=== PATIENT | male | born 1975 | race Caucasian/White ===

== ENCOUNTER 2021-11-08 21:36 | Emergency (ER) | payer MEDICAID ==
[~2021-11-08] VITALS: Ht 157.5 cm; Wt 79.5 kg
[2021-11-08 22:18] LABS: BASOPHILS # (AUTO) 0.1 X10'3 (0-0.2); BASOPHILS % (AUTO) 0.9 % (0-1); EOSINOPHILS # (AUTO) 0.4 X10'3 (0-0.9); EOSINOPHILS % (AUTO) 4.7 % (0-6); HEMATOCRIT 51.6 % (42.0-52.0); HEMOGLOBIN 17.1 g/dl (14.0-17.9); LYMPHOCYTES # (AUTO) 1.9 X10'3 (1.1-4.8); LYMPHOCYTES % (AUTO) 22.9 % (21-51); MEAN CORPUSCULAR HEMOGLOBIN 28.4 PG (27.0-31.0); MEAN CORPUSCULAR HGB CONC 33.2 g/dL (33.0-36.5); MEAN CORPUSCULAR VOLUME 85.4 FL (78-98); MONOCYTES % (AUTO) 12.7 % (2-12); NEUTROPHILS # (AUTO) 4.8 X10'3 (1.8-7.7); NEUTROPHILS % (AUTO) 58.8 % (42-75); PLATELET COUNT 229 X10'3 (140-440); RED BLOOD COUNT 6.04 X10'6 (4.70-6.10); RED CELL DISTRIBUTION WIDTH 15.5 % (11.5-14.5); WHITE BLOOD COUNT 8.2 X10'3 (4.5-11.0)
[2021-11-08 22:31] LABS: ALANINE AMINOTRANSFERASE 62 U/L (12-78); ALBUMIN 3.8 G/DL (3.4-5.0); ALKALINE PHOSPHATASE 68 IU/L (46-116); ANION GAP 7 (8-16); ASPARTATE AMINO TRANSFERASE 32 U/L (10-37); BILIRUBIN,TOTAL 0.3 MG/DL (0.1-1.0); BLOOD UREA NITROGEN 15 MG/DL (7-18); BUN/CREATININE RATIO 13.9 (5.4-32.0); CALCIUM 9.1 MG/DL (8.5-10.1); CHLORIDE 103 MMOL/L (99-107); CREATININE 1.08 MG/DL (0.60-1.10); GLUCOSE 97 MG/DL (70-104); SODIUM 140 MMOL/L (135-145); TOTAL CARBON DIOXIDE 29.6 MMOL/L (24-32); TOTAL PROTEIN 7.7 G/DL (6.4-8.2); eGFR 74 ML/MIN
--- NOTE | 2021-11-08 23:42 | NUR ---
Pt presents to the ed tx area with c/o cp, elevated bp; headaches, on intensity of 03/06; the pt states his bp was 160/150 at home; the pt states she has a hx of heart attack in 2009, and felt the need to come to the ed tonight for further evaluation. the pt is assisted to comfortable gown, placed on monitor; will ctm.
[2021-11-09 02:21] VITALS: BP 145/84
== END 2021-11-09 02:28 | disposition home or self-care (01) ==
LOC: ER 21:37
DX: I10 Essential (primary) hypertension (principal); R42 Dizziness and giddiness; R51.9 Headache, unspecified; R11.0 Nausea; I25.10 Atherosclerotic heart disease of native coronary artery without angina pectoris; F17.200 Nicotine dependence, unspecified, uncomplicated
CPT/HCPCS: 36415; 71045; 80053; 83880; 84484; 85025; 93005; 99285

== ENCOUNTER 2021-12-16 21:29 | Emergency (ER) | payer MEDICAID ==
[~2021-12-16] VITALS: Ht 157.5 cm; Wt 75.0 kg
[2021-12-16 23:20] VITALS: BP 128/76
== END 2021-12-16 23:21 | disposition home or self-care (01) ==
LOC: ER 21:30
DX: S80.12XA Contusion of left lower leg, initial encounter (principal); I25.10 Atherosclerotic heart disease of native coronary artery without angina pectoris; I25.2 Old myocardial infarction; Z85.3 Personal history of malignant neoplasm of breast; X58.XXXA Exposure to other specified factors, initial encounter; Y93.89 Activity, other specified; Y92.89 Other specified places as the place of occurrence of the external cause; Y99.8 Other external cause status
CPT/HCPCS: 99281

== ENCOUNTER 2021-12-27 00:47 | Emergency (ER) | payer MEDICAID ==
[~2021-12-27] VITALS: Ht 160 cm; Wt 72.7 kg
--- NOTE | 2021-12-27 02:35 | NUR ---
Pt sitting in bed, a&ox4, and on room air. Pt appears in no acute distress.
[2021-12-27] MEDS ORDERED: ibuprofen 200mg tablet PO ONE (02:55)
[2021-12-27] MEDS ORDERED: LIDOcaine Viscous 15ml cup TP ONE (02:55)
[2021-12-27] MEDS ORDERED: mag hydrox/Alum hydrox/simeth 30ml oral suspension PO ONE (02:55)
[2021-12-27 03:19] VITALS: BP 110/90
== END 2021-12-27 03:24 | disposition home or self-care (01) ==
LOC: ER 00:48
DX: J02.9 Acute pharyngitis, unspecified (principal); R05.9 Cough, unspecified; I25.10 Atherosclerotic heart disease of native coronary artery without angina pectoris; E78.00 Pure hypercholesterolemia, unspecified; I10 Essential (primary) hypertension; J44.9 Chronic obstructive pulmonary disease, unspecified; I25.2 Old myocardial infarction; Z85.841 Personal history of malignant neoplasm of brain; Z88.1 Allergy status to other antibiotic agents; Z88.8 Allergy status to other drugs, medicaments and biological substances
CPT/HCPCS: 87081; 87880; 99284

== ENCOUNTER 2022-01-05 04:02 | Emergency (ER) | payer MEDICAID ==
[~2022-01-05] VITALS: Ht 160 cm; Wt 77.3 kg
[2022-01-05] MEDS ORDERED: LIDOcaine Viscous 15ml cup MM ONE (05:00)
[2022-01-05] MEDS ORDERED: ibuprofen 100 MG/5 ML oral susp PO ONE (05:00)
[2022-01-05] MEDS ORDERED: diphenhydrAMINE 25 MG/10 ML UD oral solution PO ONE (05:00)
[2022-01-05] MEDS ORDERED: DIPH-518 PO (05:02)
[2022-01-05 05:33] VITALS: BP 119/85
== END 2022-01-05 05:34 | disposition home or self-care (01) ==
LOC: ER 04:02
DX: B34.9 Viral infection, unspecified (principal); I11.9 Hypertensive heart disease without heart failure; J44.9 Chronic obstructive pulmonary disease, unspecified; Z85.9 Personal history of malignant neoplasm, unspecified; E78.00 Pure hypercholesterolemia, unspecified
CPT/HCPCS: 99283; Q0163

== ENCOUNTER 2024-04-03 02:14 | Emergency (ER) | payer MEDICAID ==
[~2024-04-03] VITALS: Ht 157.5 cm; Wt 75.0 kg
[~2024-04-03 02:14] MED LIST: DIPH-518 PO
[2024-04-03 04:22] LABS: MEAN CORPUSCULAR HEMOGLOBIN 30.4 PG (27.0-31.0)
[2024-04-03 04:24] LABS: BASOPHILS # (AUTO) 0.1 X10'3 (0-0.2); BASOPHILS % (AUTO) 1.1 % (0-1); EOSINOPHILS # (AUTO) 0.6 X10'3 (0-0.9); EOSINOPHILS % (AUTO) 7.7 % (0-6); HEMATOCRIT 49.8 % (42.0-52.0); HEMOGLOBIN 16.9 g/dl (14.0-17.9); LYMPHOCYTES # (AUTO) 2.5 X10'3 (1.1-4.8); LYMPHOCYTES % (AUTO) 29.8 % (21-51); MEAN CORPUSCULAR VOLUME 89.3 FL (78-98); MONOCYTES # (AUTO) 0.9 X10'3 (0-0.9); MONOCYTES % (AUTO) 11.1 % (2-12); NEUTROPHILS # (AUTO) 4.2 X10'3 (1.8-7.7); NEUTROPHILS % (AUTO) 50.3 % (42-75); PLATELET COUNT 256 X10'3 (140-440); RED BLOOD COUNT 5.58 X10'6 (4.70-6.10); RED CELL DISTRIBUTION WIDTH 13.8 % (11.5-14.5); WHITE BLOOD COUNT 8.4 X10'3 (4.5-11.0)
[2024-04-03 04:29] VITALS: TEMP 98.6
[2024-04-03 04:30] LABS: ALANINE AMINOTRANSFERASE 126 U/L (12-78); ALBUMIN 4.2 G/DL (3.4-5.0); ALKALINE PHOSPHATASE 77 IU/L (46-116); ANION GAP 8 (8-16); ASPARTATE AMINO TRANSFERASE 69 U/L (10-37); BILIRUBIN,TOTAL 0.5 MG/DL (0.1-1.0); BLOOD UREA NITROGEN 17 MG/DL (7-18); BUN/CREATININE RATIO 14.5 (10.0-20.0); CALCIUM 9.4 MG/DL (8.5-10.1); CHLORIDE 100 MMOL/L (99-107); CREATININE 1.17 MG/DL (0.60-1.10); GLUCOSE 91 MG/DL (70-104); LIPASE 90 U/L (16-77); POTASSIUM 4.2 MMOL/L (3.5-5.1); SODIUM 136 MMOL/L (135-145); TOTAL CARBON DIOXIDE 27.7 MMOL/L (24-32); TOTAL PROTEIN 8.5 G/DL (6.4-8.2); eCRCL 61 ML/MIN; eGFR 67 ML/MIN
[2024-04-03 04:33] LABS: BILIRUBIN,URINE NEGATIVE (Neg); CLARITY,URINE CLEAR (Clear); COLOR,URINE YELLOW (Yellow); GLUCOSE, URINE NEGATIVE (Neg); KETONES,URINE NEGATIVE (Neg); LEUKOCYTE ESTERASE ,URINE NEGATIVE (Neg); NITRITES, URINE NEGATIVE (Neg); OCCULT BLOOD,URINE NEGATIVE (Neg); PH,URINE 5.5 (4.8-8.0); PROTEIN,URINE NEGATIVE (Neg); UROBILINOGEN,URINE 0.2 E.U/dL (0.2-1.0)
[2024-04-03 04:36] LABS: UA COLLECTION TYPE URINAL
[2024-04-03 05:12] VITALS: BP 106/74; PULSE 65; RESP 19; O2SAT 95
== END 2024-04-03 05:15 | disposition home or self-care (01) ==
LOC: ER 02:14
DX: R10.31 Right lower quadrant pain (principal); R11.0 Nausea; I25.10 Atherosclerotic heart disease of native coronary artery without angina pectoris; E78.00 Pure hypercholesterolemia, unspecified; I10 Essential (primary) hypertension; I25.2 Old myocardial infarction; J44.9 Chronic obstructive pulmonary disease, unspecified; Z85.841 Personal history of malignant neoplasm of brain; Z88.8 Allergy status to other drugs, medicaments and biological substances; Z79.899 Other long term (current) drug therapy
CPT/HCPCS: 36415; 74176; 80053; 81003; 83690; 85025; 99284

== ENCOUNTER → 2024-04-16 | Emergency (ER) | payer MEDICAID ==
[~2024-04-16] VITALS: Ht 157.5 cm; Wt 73.2 kg
[~2024-04-16] MED LIST changes: +GOLYS PO
[2024-04-16 12:52] VITALS: TEMP 97.9
[2024-04-16 13:55] VITALS: BP 120/84; PULSE 58; RESP 13; O2SAT 97
== END | disposition home or self-care (01) ==
LOC: ER 12:03
DX: K59.00 Constipation, unspecified (principal); I25.10 Atherosclerotic heart disease of native coronary artery without angina pectoris; E78.00 Pure hypercholesterolemia, unspecified; I10 Essential (primary) hypertension; I25.2 Old myocardial infarction; J44.9 Chronic obstructive pulmonary disease, unspecified; Z88.8 Allergy status to other drugs, medicaments and biological substances
CPT/HCPCS: 99283

== ENCOUNTER 2025-01-09 13:36 | Emergency (ER) | payer MEDICAID ==
[~2025-01-09] VITALS: Ht 157.5 cm; Wt 56.8 kg
[2025-01-09 13:44] VITALS: TEMP 97.8
--- NOTE | 2025-01-09 14:01 | ELECTROCARDIOGRAPH REPORT ---
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
[2025-01-09 14:10] LABS: BASOPHILS # (AUTO) 0.1 X10'3 (0-0.2); BASOPHILS % (AUTO) 1.8 % (0-1); EOSINOPHILS # (AUTO) 0.3 X10'3 (0-0.9); EOSINOPHILS % (AUTO) 6.9 % (0-6); HEMATOCRIT 47.7 % (42.0-52.0); HEMOGLOBIN 15.6 g/dl (14.0-17.9); LYMPHOCYTES # (AUTO) 1.2 X10'3 (1.1-4.8); LYMPHOCYTES % (AUTO) 26.5 % (21-51); MEAN CORPUSCULAR HEMOGLOBIN 29.6 PG (27.0-31.0); MEAN CORPUSCULAR HGB CONC 32.7 g/dL (33.0-36.5); MEAN CORPUSCULAR VOLUME 90.5 FL (78-98); MONOCYTES # (AUTO) 0.3 X10'3 (0-0.9); MONOCYTES % (AUTO) 6.8 % (2-12); NEUTROPHILS # (AUTO) 2.6 X10'3 (1.8-7.7); PLATELET COUNT 252 X10'3 (140-440); RED BLOOD COUNT 5.27 X10'6 (4.70-6.10); RED CELL DISTRIBUTION WIDTH 13.6 % (11.5-14.5); WHITE BLOOD COUNT 4.5 X10'3 (4.5-11.0)
[2025-01-09 14:26] LABS: ALANINE AMINOTRANSFERASE 27 U/L (12-78); ALBUMIN 4.4 G/DL (3.4-5.0); ALBUMIN/GLOBULIN RATIO 1.3 (1.1-1.5); ALKALINE PHOSPHATASE 74 IU/L (46-116); ANION GAP 7 (8-16); ASPARTATE AMINO TRANSFERASE 21 U/L (10-37); BILIRUBIN,TOTAL 0.5 MG/DL (0.1-1.0); BLOOD UREA NITROGEN 17 MG/DL (7-18); BUN/CREATININE RATIO 16.5 (10.0-20.0); CALCIUM 9.2 MG/DL (8.5-10.1); CHLORIDE 103 MMOL/L (99-107); CREATININE 1.03 MG/DL (0.60-1.10); GLUCOSE 105 MG/DL (70-104); SODIUM 140 MMOL/L (135-145); TOTAL CARBON DIOXIDE 30.3 MMOL/L (24-32); TOTAL PROTEIN 7.7 G/DL (6.4-8.2); eCRCL 68 ML/MIN; eGFR 77 ML/MIN
[2025-01-09 14:33] LABS: PRO BRAIN NATRIURETIC PEPTIDE 140 PG/ML (0-125)
--- NOTE | 2025-01-09 15:16 | RADIOLOGY REPORT ---
CHEST RADIOGRAPH Indication: CP Technique: Single frontal view of the chest was obtained Comparison: CHEST,SINGLE VIEW on DOS: 11/08/21 FINDINGS: Lines and Tubes: None Lungs: No focal consolidation. Pleura: No effusion. No pneumothorax. Cardiomediastinal contours: Unremarkable Bones: No acute osseous abnormality. IMPRESSION: 1. No acute cardiopulmonary disease.
--- NOTE | 2025-01-09 17:24 | Physician Documentation ---
History of Present Illness ~ Chief Complaint: Chest Pain Stated Complaint: BLOOD CLOTS IN HEART Time Seen by MD: 17:01 Primary Medical Doctor: [facility] Source: patient Mode of Arrival: Ambulatory HPI 48-year-old male in ER with concerns due to blood clot in the heart patient recently had an echo and stress test ordered by his optical manufacturing technician in [facility] with ejection fraction of 60% but mass seen in the left ventricle. Patient was ultimately placed on Eliquis 5 mg twice a day to complement his Plavix. Patient states he has history of having a heart attack in 2009 when he started Plavix. Patient states that he was also bleeding uncontrollably from his nose and his mouth subjectively since starting Eliquis. Patient has been on Eliquis for 2 days. Patient does have a primary care provider at [facility] he has not seen in several months. His optical manufacturing technician is Dr. Riggs. Patient denies any chest pain or shortness of breath. Patient's main concern is this left ventricle mass or blood clot that he is now taking Eliquis for. Day of Onset: January 09, 2025 Associated Symptoms: Denies: denies symptoms, chest pain, diaphoresis, nausea/vomiting, shortness of breath, cough, calf pain or swelling, fever/chills, headaches, loss of appetite, malaise, palpitations, rash, seizure, syncope, weakness, other Medication Reconciliation Allergies: Coded Allergies: sulfamethoxazole (Verified Allergy, Severe, increases heart rate, 04/16/24) trimethoprim (Verified Allergy, Severe, increases heart rate, 04/16/24) Scheduled Peg 3350/Na Sulf,Bicarb,Cl/KCl (Golytely Solution), 0 PO UD Scheduled PRN Diphenhydramine HCl (Benadryl Allergy), 15 ML PO Q6H PRN PRN for allergy symptoms Past Medical History Past Medical History: Coronary Artery Disease, High Cholesterol, Hypertension, Myocardial Infarction, COPD, Brain Cancer Past Surgical History: no surgical history Alcohol Use: None Drug Use: none Lives In: Home Review of Systems All Other Systems at this time: Reviewed and Negative Cardiovascular: Reports: see HPI Physical Exam Vital Signs: RN Vital Signs have been reviewed: Yes, Temperature: 97.8, Source: Oral, Heart Rate: 57, Respiratory Rate: 16, BP: 123/83, Pulse Oximetry: 98, Weight: 56.820 Oxygen Flow Rate: 0 General Appearance: alert, no apparent distress Respiratory: lungs clear, normal breath sounds, no respiratory distress Chest: no accessory muscle use Cardiovascular: normal peripheral pulses, regular rate, rhythm, no edema Skin: normal color, warm/dry Progress Results/Orders Results/Orders Vital Signs 01/09/25 01/09/25 01/09/25 13:44 16:55 17:52 Temp 97.8 Pulse 82 57 80 Resp 17 16 18 B/P (MAP) 120/82 123/83 (96) 116/64 Pulse Ox 98 98 98 O2 Flow Rate 0 0 Laboratory Tests Test 01/09/25 13:58 01/09/25 15:43 White Blood Count 4.5 Red Blood Count 5.27 Hemoglobin 15.6 Hematocrit 47.7 Mean Corpuscular Volume 90.5 Mean Corpuscular Hemoglobin 29.6 Mean Corpuscular Hemoglobin Concent 32.7 L Red Cell Distribution Width 13.6 Platelet Count 252 Mean Platelet Volume 9.0 Neutrophils (%) (Auto) 58.0 Lymphocytes (%) (Auto) 26.5 Monocytes (%) (Auto) 6.8 Eosinophils (%) (Auto) 6.9 H Basophils (%) (Auto) 1.8 H Neutrophils # (Auto) 2.6 Lymphocytes # (Auto) 1.2 Monocytes # (Auto) 0.3 Eosinophils # (Auto) 0.3 Basophils # (Auto) 0.1 CBC Comment Sodium Level 140 Potassium Level 4.0 Chloride Level 103 Carbon Dioxide Level 30.3 Anion Gap 7 L Blood Urea Nitrogen 17 Creatinine 1.03 Estimated GFR/1.73 m2 77 BUN/Creatinine Ratio 16.5 Glucose Level 105 H Calcium Level 9.2 Total Bilirubin 0.5 Aspartate Amino Transf (AST/SGOT) 21 Alanine Aminotransferase (ALT/SGPT) 27 Alkaline Phosphatase 74 Troponin I High Sensitivity 7 7 Pro-B-Type Natriuretic Peptide 140 H Total Protein 7.7 Albumin 4.4 Globulin 3.3 Albumin/Globulin Ratio 1.3 Chemistry Comments Troponin I High Sens Percent Delta 0 Troponin I Hi Sens Absolute Change 0 EKG/XRAY/CT/US/VASC/MRI EKG : Indication: chest pain, other Additional Comment EKG: Sinus rhythm at 76 beats per minute normal axis no acute ST abnormalities Chest X-Ray : Interpreted By: radiologist Views: 1 VIEW Impression: no acute disease Additional Comments CHEST RADIOGRAPH Indication: CP Technique: Single frontal view of the chest was obtained Comparison: CHEST,SINGLE VIEW on DOS: 11/08/21 FINDINGS: Lines and Tubes: None Lungs: No focal consolidation. Pleura: No effusion. No pneumothorax. Cardiomediastinal contours: Unremarkable Bones: No acute osseous abnormality. IMPRESSION: 1. No acute cardiopulmonary disease. Heart Score: Heart Score Response (Comments) Value History Slightly Suspicious 0 EKG Normal 0 Age 45-64 1 Risk Factors 1 or 2 risk factors 1 Troponin Normal limit 0 Total 2 Medical Decision Making Additional info obtained from: old records Differential Dx:Considerations: Unlikely: angina, aortic dissection, chest wall pain, cholelithiasis, CHF, costochondritis, esophageal reflux/spasm, gastritis, herpes zoster, myocardial infarction, pericarditis, pleuritis, pancreatitis, pneumonia, pneumothorax, pulmonary embolus, other Additional Information Patient has reoccurred follow-up optical manufacturing technician. Patient concerned for clot/mass that is currently being treated by optical manufacturing technician Dr. Riggs. He had an echo and stress test 2 weeks ago and placed on Eliquis. Patient is denying any current chest pain or shortness of breath. Reassurance and education provided on medications follow-up with primary care and optical manufacturing technician. Departure Time of Disposition: 17:18 Disposition: HOME / SELF CARE / HOMELESS Impression: Primary Impression: Chest pain Additional Impression: Hx of custodial use of blood thinners Condition: Stable Discharge Instructions: Heart Disease Medication Safety Referrals: NO PRIMARY CARE PROVIDER (PCP) Education Educated: Patient Educated regarding: diagnosis, treatment, need for follow up Additional Comment As discussed during our encounter I advised following up with primary care as well as potentially getting a optical manufacturing technician closer in the area to have more frequent follow-up. Follow optical manufacturing technician recommendations for Eliquis and Plavix. Maintain follow-up in 6 months or sooner with new optical manufacturing technician. For any new or worsening symptoms including chest pain or shortness of breadth cell free to return to the ER. Signature Scribe Signature: No scribe Attestation: The note accurately reflects work and decisions made by me.Dianne BORRERO 01/09/25 18:07 DIANNE LYN NP January 09, 2025 17:24
[2025-01-09 17:52] VITALS: BP 116/64; PULSE 80; RESP 18; O2SAT 98
== END 2025-01-09 17:52 | disposition home or self-care (01) ==
LOC: ER 13:37
DX: R07.89 Other chest pain (principal); I10 Essential (primary) hypertension; E78.00 Pure hypercholesterolemia, unspecified; I25.10 Atherosclerotic heart disease of native coronary artery without angina pectoris; J44.9 Chronic obstructive pulmonary disease, unspecified; I25.2 Old myocardial infarction; I16.1 Hypertensive emergency; Z79.01 Long term (current) use of anticoagulants; Z88.2 Allergy status to sulfonamides; Z79.899 Other long term (current) drug therapy
CPT/HCPCS: 36415; 71045; 80053; 83880; 84484; 85025; 93005; 99285

== ENCOUNTER 2025-01-30 08:07 | Emergency (ER) | payer MEDICAID ==
[~2025-01-30] VITALS: Ht 157.5 cm; Wt 58.2 kg
--- NOTE | 2025-01-30 08:26 | ELECTROCARDIOGRAPH REPORT ---
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 Rhys Adler Measurements Intervals [place] Rate: 66 P: 86 VA: 206 QRS: 87 QRSD: 87 T: 97 QT: 388 QTc: 407 Interpretive Statements Sinus rhythm Borderline prolonged VA interval Nonspecific T abnrm, anterolateral leads Electronically Signed On 01-30-2025 11:14:[address] Rhys Adler Please click the below link to view image of tracing.
[2025-01-30 08:27] LABS: BASOPHILS # (AUTO) 0.1 X10'3 (0-0.2); BASOPHILS % (AUTO) 0.9 % (0-1); EOSINOPHILS # (AUTO) 0.4 X10'3 (0-0.9); HEMATOCRIT 41.8 % (42.0-52.0); HEMOGLOBIN 13.8 g/dl (14.0-17.9); LYMPHOCYTES # (AUTO) 1.8 X10'3 (1.1-4.8); LYMPHOCYTES % (AUTO) 19.9 % (21-51); MEAN CORPUSCULAR HEMOGLOBIN 29.9 PG (27.0-31.0); MEAN CORPUSCULAR VOLUME 90.5 FL (78-98); MEAN PLATELET VOLUME 9.1 FL (7.4-10.4); MONOCYTES # (AUTO) 0.9 X10'3 (0-0.9); MONOCYTES % (AUTO) 10.5 % (2-12); NEUTROPHILS # (AUTO) 5.7 X10'3 (1.8-7.7); NEUTROPHILS % (AUTO) 63.7 % (42-75); PLATELET COUNT 194 X10'3 (140-440); RED BLOOD COUNT 4.62 X10'6 (4.70-6.10); RED CELL DISTRIBUTION WIDTH 13.6 % (11.5-14.5); WHITE BLOOD COUNT 8.9 X10'3 (4.5-11.0)
[2025-01-30 08:54] LABS: ALBUMIN 3.8 G/DL (3.4-5.0); ANION GAP 7 (8-16); BLOOD UREA NITROGEN 19 MG/DL (7-18); CALCIUM 8.7 MG/DL (8.5-10.1); CHLORIDE 103 MMOL/L (99-107); GLUCOSE 108 MG/DL (70-104); POTASSIUM 3.8 MMOL/L (3.5-5.1); PRO BRAIN NATRIURETIC PEPTIDE 199 PG/ML (0-125); SODIUM 141 MMOL/L (135-145); TOTAL CARBON DIOXIDE 30.8 MMOL/L (24-32); eCRCL 71 ML/MIN; eGFR 80 ML/MIN
--- NOTE | 2025-01-30 09:33 | Physician Documentation ---
History of Present Illness ~ Chief Complaint: Neck pain Stated Complaint: PAIN/SWELLING/NUMBNESS IN NECK/JAW X2 DAYS Time Seen by MD: 09:32 OK to notify your PCP?: Yes Primary Medical Doctor: [facility] Source: patient, RN/, RN notes reviewed, other Mode of Arrival: POV Exam Limitations: no limitations, other HPI 49 year old male with three blood clots in his heart seen in bed o4 presents to the emergency department for complaints of neck pain that began two days ago. He states that the pain is in the left side of his neck and it radiates down to his shoulder. He states the pain began as numbness two days ago and turned into pain that worsens with movements. Patient states that he has been taking [place] for his pain. Of note patient states that he is on palliative care due to needing a heart transplant as he has an ejection fraction of 18-20% per patient as there was no echocardiography done at this facility . He was sent in today by his palliative care nurse. He states that when he was younger he used steroids and ate three pounds of red meat a day which he attributes his heart issues. He denies any smoking or drug use. Patient denies any other associated symptoms at this time. Patient denies any other alleviating or exacerbating factors. Medication Reconciliation Allergies: Coded Allergies: sulfamethoxazole (Verified Allergy, Severe, increases heart rate, 04/16/24) trimethoprim (Verified Allergy, Severe, increases heart rate, 04/16/24) Scheduled Peg 3350/Na Sulf,Bicarb,Cl/KCl (Golytely Solution), 0 PO UD Scheduled PRN Diphenhydramine HCl (Benadryl Allergy), 15 ML PO Q6H PRN PRN for allergy symptoms Tramadol HCl (Tramadol HCl), 1 TAB PO Q12H PRN PRN for pain Past Medical History Past Medical History: Coronary Artery Disease, High Cholesterol, Hypertension, Myocardial Infarction, COPD, Brain Cancer Past Surgical History: no surgical history Alcohol Use: None Drug Use: none Lives In: Home Review of Systems All Other Systems at this time: Reviewed and Negative ROS As stated above in the HPI, otherwise all systems are reviewed and negative. Physical Exam Vital Signs: RN Vital Signs have been reviewed: Yes, Temperature: 98.4, Source: Oral, Heart Rate: 59, Respiratory Rate: 20, BP: 100/70, Pulse Oximetry: 97, Weight: 58.200 Oxygen Flow Rate: 0 Pulse Oximetry Reflects: adequate oxygenation Physical Exam General: The patient is well developed, well nourished, nontoxic appearing and is in no acute distress. Skin: [place], warm and dry with no rashes. HEENT: Head was normocephalic and atraumatic. Eyes - pupils equal, round, reactive to light and accommodation. Extraocular movements were intact. Conjunctivae were nonicteric. Ears - bilateral tympanic membranes were normal. The mouth and oropharynx were clear with moist mucous membranes. There were no pharyngeal exudates or erythema. Neck: Mild midline tenderness. Patient has some spinal tenderness as well in tenderness in both his posterior and anterior neck. There was no jugular venous distention, lymphadenopathy, thyromegaly or masses. Chest: Clear to auscultation bilaterally without wheezes, rales or rhonchi. No accessory muscle use. No dullness to percussion. Heart: Rate regular and rhythmic. S1, S2. No murmurs. Palpation of the chest wall was normal. No rubs or thrills. Abdomen: Soft, nontender and nondistended. Positive bowel sounds. No guarding or rebound. No hepatosplenomegaly or palpable masses. Extremities: No cyanosis, clubbing or edema. The patient moves all extremities. Pulses were equal and symmetric. Neurologic: Cranial nerves II-XII were intact. Sensation was intact to light touch throughout. Motor strength was 5/5 in all four extremities. Deep tendon reflexes were intact in both upper and lower extremities. Psychologic: The patient was oriented to person, place and time. The patient demonstrated appropriate judgement and insight. Progress Results/Orders Reviewed/noted all lab results: Yes Results/Orders Orders - NASIR RAMIREZ MD Chest,Single View (01/30/25 08:14) Monitor (01/30/25 08:14) Saline Lock (01/30/25 08:14) Oxygen (01/30/25 08:14) Electrocardiogram (01/30/25 08:14) Hs Troponin I W Calculations (01/30/25 11:14) Cta Chest Aorta (01/30/25 14:03) Ct Cervical Spine (01/30/25 14:01) Pre Op Uacii (01/30/25 16:09) Completed Orders - NASIR RAMIREZ MD Chest,Single View (01/30/25 08:14) Cbc/Diff (01/30/25 08:14) BMP (01/30/25 08:14) PBNP (01/30/25 08:14) Electrocardiogram (01/30/25 08:14) Hs Troponin I W Calculations (01/30/25 08:14) Hs Troponin I W Calculations (01/30/25 10:14) Drug Screen, Urine (01/30/25 12:58) Ethanol (01/30/25 10:01) Liver Panel (01/30/25 10:01) PBNP (01/30/25 10:01) Cta Chest Aorta (01/30/25 14:03) Ct Cervical Spine (01/30/25 14:01) Iohexol 350mg/Ml 100ml (Omnipaque 350mg/ (01/30/25 13:52) Vital Signs 01/30/25 01/30/25 01/30/25 01/30/25 08:11 08:41 09:12 09:55 Temp 98.4 98.4 98.4 Pulse 65 59 63 Resp 16 18 20 19 B/P (MAP) 117/83 100/70 (80) 101/68 (79) Pulse Ox 97 97 98 O2 Flow Rate 0 0 0 01/30/25 01/30/25 01/30/25 01/30/25 11:03 15:59 16:00 17:10 Temp 98.4 Pulse 60 59 61 Resp 20 14 21 B/P (MAP) 100/71 (81) 108/76 (87) 110/80 Pulse Ox 98 94 98 O2 Flow Rate 0 0 01/30/25 17:12 Pulse 61 Resp 15 B/P (MAP) 110/80 (90) Pulse Ox 98 Laboratory Tests Test 01/30/25 08:20 01/30/25 10:01 01/30/25 15:47 White Blood Count 8.9 Red Blood Count 4.62 L Hemoglobin 13.8 L Hematocrit 41.8 L Mean Corpuscular Volume 90.5 Mean Corpuscular Hemoglobin 29.9 Mean Corpuscular Hemoglobin Concent 33.0 Red Cell Distribution Width 13.6 Platelet Count 194 Mean Platelet Volume 9.1 Neutrophils (%) (Auto) 63.7 Lymphocytes (%) (Auto) 19.9 L Monocytes (%) (Auto) 10.5 Eosinophils (%) (Auto) 5.0 Basophils (%) (Auto) 0.9 Neutrophils # (Auto) 5.7 Lymphocytes # (Auto) 1.8 Monocytes # (Auto) 0.9 Eosinophils # (Auto) 0.4 Basophils # (Auto) 0.1 CBC Comment Sodium Level 141 Potassium Level 3.8 Chloride Level 103 Carbon Dioxide Level 30.8 Anion Gap 7 L Blood Urea Nitrogen 19 H Creatinine 1.00 Estimated GFR/1.73 m2 80 BUN/Creatinine Ratio 19.0 Glucose Level 108 H Calcium Level 8.7 Troponin I High Sensitivity 7 7 Pro-B-Type Natriuretic Peptide 199 H 185 H Albumin 3.8 3.6 Chemistry Comments Total Bilirubin 0.3 Direct Bilirubin 0.1 Aspartate Amino Transf (AST/SGOT) 20 Alanine Aminotransferase (ALT/SGPT) 20 Alkaline Phosphatase 71 Troponin I High Sens Percent Delta 0 Troponin I Hi Sens Absolute Change 0 Total Protein 6.8 Globulin 3.2 Albumin/Globulin Ratio 1.1 Ethyl Alcohol Level < 10 Urine Comment Urine Opiates Screen Positive Urine Methadone Screen Negative Urine Fentanyl Screen Negative Urine Barbiturates Screen Negative Urine Phencyclidine Screen Negative Urine Amphetamines Screen Negative Urine Benzodiazepines Screen Negative Urine Cocaine Screen Negative Urine Cannabinoids Screen Positive Drug Screen Comment Re-Evaluation Re-Evaluation : Re-Evaluation: Improved Progress Patient was seen and examined. Patient was given reassurance. Patient is complaining of some neck pain history of clots. Distal pulses were patent and reassuring for concern for possible DVT of the upper extremity which is unlikely or subclavian arteries. Patient laboratory work was also reassuring. White cou nt was 8.9 borderline anemia of 13 and 41 hemoglobin hematocrit. Chemistry is within normal limits proBNP within normal limits troponin x2 he is also within normal limits tox screen negative alcohol negative urinalysis was canceled for small specimen. CT scan was negative for pulmonary embolism CT C-spine showed some degenerative neck disease. Infection is unlikely, vascular disease unlikely. Musculoskeletal appears to be the major complaint for the patient including neck pain from degenerative disease however the muscle spasms mostly to one muscle group and the patient was diagnosed with torticollis. Continuous tip puncher interpretation shows normal sinus rhythm heart rate 60s, no ectopy, normal, my interpretation. Pulse oximetry monitor interpretation shows normal oxygenation 97% room air, normal, my interpretation. 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 Nasir Ramirez Measurements Intervals [place] Rate: 66 P: 86 WI: 206 QRS: 87 QRSD: 87 T: 97 QT: 388 QTc: 407 Interpretive Statements Sinus rhythm Borderline prolonged [place] interval Nonspecific T abnrm, anterolateral leads Electronically Signed On 01-30-2025 11:14:[address] Nasir Ramirez Please click the below link to view image of tracing. EKG Date and Time:01/30/25821 Electronically Signed by: NASIR RAMIREZ MD Date and Time: 01/30/[address] #1: Impression History: pain Comparison: None TECHNIQUE: Volumetric data acquisition of chest was obtained following intravenous administration of 100 ml omni 350 contrast without any reported adverse effects. Arterial phase imaging was performed. Axial images were obtained and additional sagittal and coronal images were reformatted. 3D/MIP images were performed and reviewed for reporting. Radiation dose Information: CT Dose: CTDI volume is 20 mGy. Dose-length product is 704 mGy*cm Findings: Vascular: Aortic measurements: Sinus of valsalva 35 mm, ST junction 25 mm, ascending aorta 31 mm, descending aorta 21 mm, aortic hiatus 20 mm. There is normal caliber of thoracic aorta without evidence of aortic dissection, intramural hematoma or aneurysm. A ductus bump is noted. Visualized supra-aortic arteries are patent without a focal stenosis or aneurysm. Chest: Pulmonary Arteries: There are no filling defects within main pulmonary arteries. There is normal dimensional of main PA. Lungs: There is no peripheral pulmonary infarction, consolidation, pleural effusion, or right heart strain. There is no pneumothorax or pneumomediastinum. Mild atelectasis and scarring in the lung bases. Lymph Nodes: There is no significant intrathoracic or axillary lymphadenopathy on CT size criteria. Lower Neck: Visualized portions of the thyroid gland are unremarkable. Mediastinum: Heart size is normal. There is no pericardial effusion. Musculoskeletal: No aggressive focal bony lesions, acute fractures or dislocation. Upper Abdomen: Unremarkable IMPRESSION: 1. No evidence of aortic aneurysm, dissection, or intramural hematoma. No pulmonary embolus. No suspicious nodule or consolidation. 2. All CT scans at this medical facility are performed using dose modulation techniques as appropriate to a performed exam including the following: Automated exposure control was utilized; Adjustment of the MA And/or KV according to patient size; And use of iterative reconstruction technique. HS:Y Electronically Signed by:PATRICE FRYE MD Date & Time: 01/30/[address] #2: Impression Indication: left neck pain Technique: CT axial images of the cervical spine are obtained without contrast. Coronal and sagittal reformats were obtained. Radiation Dose Information: CTDI volume is 19 mGy. Dose-length product is 444 mGy*cm Comparison: None FINDINGS: The cervical vertebral body heights are maintained. Straightening of normal cervical spine curvature. There is moderate multilevel disc space narrowing. No prevertebral edema. Facet articulations are in tact. . The atlantooccipital, atlantoaxial articulations are intact. IMPRESSION: 1. Moderate cervical degenerative disc disease. Electronically Signed by:ALBINO BUENROSTRO MD Date & Time: 01/30/25 1429 Medical Decision Making Additional info obtained from: old records Differential Dx:Considerations: Include: Cervical muscle spasm, Discitis, DJD, Meningitis, Torticollis, Vertebral artery dissect., Other Departure Time of Disposition: 16:40 Disposition: 01 HOME / SELF CARE / HOMELESS Impression: Primary Impression: DJD (degenerative joint disease) Qualified Codes: M47.22 - Other spondylosis with radiculopathy, cervical region Additional Impression: Torticollis Condition: Stable Discharge Instructions: Acute Torticollis, Adult Referrals: NO PRIMARY CARE PROVIDER (PCP) Prescriptions Tramadol HCl (Tramadol HCl) 50 Mg Tablet 1 TAB PO Q12H PRN PRN for pain for 10 Days, #20 TAB Prov: NASIR RAMIREZ MD 01/30/25 Education Educated: Patient Educated regarding: diagnosis, treatment, prognosis, need for follow up Signature Scribe Signature: Scribed for Nasir Ramirez MD by Ruslan Ramirez . 01/30/25 11:59 (progress) Attestation: The note accurately reflects work and decisions made by me.Nasir Ramirez MD 01/30/25 09:33 NASIR RAMIREZ MD Jan 30, 2025 09:33 RUSLAN MCCLURE Jan 30, 2025 11:59
[2025-01-30 11:03] VITALS: TEMP 98.4
[2025-01-30 13:47] LABS: ALANINE AMINOTRANSFERASE 20 U/L (12-78); ALBUMIN 3.6 G/DL (3.4-5.0); ALBUMIN/GLOBULIN RATIO 1.1 (1.1-1.5); ALKALINE PHOSPHATASE 71 IU/L (46-116); ASPARTATE AMINO TRANSFERASE 20 U/L (10-37); BILIRUBIN,DIRECT 0.1 MG/DL (0-0.3); BILIRUBIN,TOTAL 0.3 MG/DL (0.1-1.0); TOTAL PROTEIN 6.8 G/DL (6.4-8.2)
[2025-01-30] MEDS ORDERED: iohexol 350MG/ML 100ml bottle IV ONE (13:52)
[2025-01-30 13:54] LABS: ETHANOL < 10 MG/DL (<10)
[2025-01-30 14:12] LABS: PRO BRAIN NATRIURETIC PEPTIDE 185 PG/ML (0-125)
--- NOTE | 2025-01-30 14:31 | RADIOLOGY REPORT ---
Indication: left neck pain Technique: CT axial images of the cervical spine are obtained without contrast. Coronal and sagittal reformats were obtained. Radiation Dose Information: CTDI volume is 19 mGy. Dose-length product is 444 mGy*cm Comparison: None FINDINGS: The cervical vertebral body heights are maintained. Straightening of normal cervical spine curvature . There is moderate multilevel disc space narrowing. No prevertebral edema. Facet articulations are i n tact. . The atlantooccipital, atlantoaxial articulations are intact. IMPRESSION: 1. Moderate cervical degenerative disc disease.
--- NOTE | 2025-01-30 14:52 | RADIOLOGY REPORT ---
History: pain Comparison: None TECHNIQUE: Volumetric data acquisition of chest was obtained following intravenous administration of 100 ml omni 350 contrast without any reported adverse effects. Arterial phase imaging was performed. Axial images were obtained and additional sagittal and coronal images were reformatted. 3D/MIP images were performed and reviewed for reporting. Radiation dose Information: CT Dose: CTDI volume is 20 mGy. Dose-length product is 704 mGy*cm Findings: Vascular: Aortic measurements: Sinus of valsalva 35 mm, ST junction 25 mm, ascending aorta 31 mm, d escending aorta 21 mm, aortic hiatus 20 mm. There is normal caliber of thoracic aorta without evidence of aortic dissection, intramural hematoma or aneurysm. A ductus bump is noted. Visualized supra-aortic arteries are patent without a focal sten osis or aneurysm. Chest: Pulmonary Arteries: There are no filling defects within main pulmonary arteries. There is norm al dimensional of main PA. Lungs: There is no peripheral pulmonary infarction, consolidation, pleural effusion, or right heart s train. There is no pneumothorax or pneumomediastinum. Mild atelectasis and scarring in the lung bases . Lymph Nodes: There is no significant intrathoracic or axillary lymphadenopathy on CT size criteria. Lower Neck: Visualized portions of the thyroid gland are unremarkable. Mediastinum: Heart size is normal. There is no pericardial effusion. Musculoskeletal: No aggressive focal bony lesions, acute fractures or dislocation. Upper Abdomen: Unremarkable IMPRESSION: 1. No evidence of aortic aneurysm, dissection, or intramural hematoma. No pulmonary embolus. No suspi cious nodule or consolidation. 2. All CT scans at this medical facility are performed using dose modulation techniques as appropriat e to a performed exam including the following: Automated exposure control was utilized; Adjustment of the MA And/or KV according to patient size; And use of iterative reconstruction technique. HS:Y
[2025-01-30 16:35] LABS: URINE AMPHETAMINE SCREEN NEGATIVE (Neg); URINE BARBITUATE SCREEN NEGATIVE (Neg); URINE BENZODIAZEPINES SCREEN NEGATIVE (Neg); URINE CANNABINOID SCREEN POSITIVE (Neg); URINE COCAINE SCREEN NEGATIVE (Neg); URINE METHADONE SCREEN NEGATIVE (Neg); URINE OPIATE SCREEN POSITIVE (Neg); URINE PHENCYCLIDINE SCREEN NEGATIVE (Neg)
[2025-01-30] MEDS ORDERED: TRAM50TA2 PO (16:41)
[2025-01-30 17:12] VITALS: BP 110/80; PULSE 61; RESP 15; O2SAT 98
--- NOTE | 2025-01-31 11:01 | RADIOLOGY REPORT ---
CHEST RADIOGRAPH Indication: CP Technique: Single frontal view of the chest was obtained Comparison: DI CHEST,SINGLE VIEW on DOS: 01/09/25 FINDINGS: Lines and Tubes: None Lungs: No focal consolidation. Pleura: No effusion. No pneumothorax. Cardiomediastinal contours: Unremarkable Bones: No acute osseous abnormality. Age-indeterminate but probably chronic appearing 9th left rib f racture. IMPRESSION: 1. No acute cardiopulmonary disease.
== END 2025-01-30 17:13 | disposition home or self-care (01) ==
LOC: ER 08:07
DX: M19.90 Unspecified osteoarthritis, unspecified site (principal); M43.6 Torticollis; E78.00 Pure hypercholesterolemia, unspecified; I10 Essential (primary) hypertension; I25.10 Atherosclerotic heart disease of native coronary artery without angina pectoris; I25.2 Old myocardial infarction; J44.9 Chronic obstructive pulmonary disease, unspecified; Z88.2 Allergy status to sulfonamides; Z79.899 Other long term (current) drug therapy
CPT/HCPCS: 36415; 71045; 71275; 72125; 80048; 80076; 80305; 80320; 83880; 84484; 85025; 93005; 99285; Q9967

== ENCOUNTER 2025-07-10 11:07 | Emergency (ER) | payer MEDICAID ==
[~2025-07-10] VITALS: Ht 157.5 cm; Wt 53.4 kg
[2025-07-10 11:16] VITALS: RESP 16; TEMP 98.1
--- NOTE | 2025-07-10 11:56 | Physician Documentation ---
History of Present Illness ~ General Chief Complaint: See Chief Complaint Stated Complaint: POST OP COMPLICATIONS Time Seen by MD: 11:27 Primary Medical Doctor: [facility] Mode of Arrival: Ambulatory History of Present Illness Initial Comments 49-year-old male with past medical history of CAD status post cardiac stenting to LAD, IBS, chronic constipation, SBO presents to the ED with chief complaints of chronic constipation in the past 3 weeks. Patient claims his last bowel movement was the 28 of June. He also complains of diffuse abdominal pain 7 on 10 in intensity since the past few weeks associated with 50 lb of weight loss. He was admitted at [facility], for the same symptoms and had an upper endoscopy which showed erythematous mucosa in the gastroesophageal junction with a medium amount of phytobezoar in the stomach. Patient had 2 large bowel movements during his hospital stay which he claims was secondary to stopping his antidepressant pill Effexor which he has been using since the past 27 years. He claims of being discharged from the hospital due to some insurance issues which she is unsure of. He also sees web manager Dr. Millan outpatient and had a colonoscopy a year ago and was told he has a high risk for colon carcinoma due to polyps being found in the prior colonoscopy. However he was attempting to visit Dr. Millan yesterday he was not accepted due to his insurance. Patient claims of using magnesium citrate and isbrelle as part of his bowel regimen for the past few years which has not been helping him recently. He also had a CT scan at the prior hospital and he was diagnosed with small-bowel obstruction but here during his ED visit, patient does have good bowel sounds. He claims of having coronary artery disease and cardiac stenting 10 years ago to his LAD, he sees at [facility]. PCP: , he [facility] Instrumentation Instructor: Dr. Keely Singleton Medication Reconciliation Allergies: Coded Allergies: sulfamethoxazole (Verified Allergy, Severe, increases heart rate, 07/10/25) trimethoprim (Verified Allergy, Severe, increases heart rate, 07/10/25) Scheduled Peg 3350/Na Sulf,Bicarb,Cl/KCl (Golytely Solution), 0 PO UD Scheduled PRN Diphenhydramine HCl (Benadryl Allergy), 15 ML PO Q6H PRN PRN for allergy symptoms Past Medical History Past Medical History: Coronary Artery Disease, High Cholesterol, Hypertension, Myocardial Infarction, COPD, Brain Cancer Other Past Medical History: Coronary artery disease IBS Chronic constipation Possible SBO or ileus Past Surgical History: no surgical history Alcohol Use: None Drug Use: none Lives In: Home Additional Comment Quit smoking 10 years ago, he smoked of about a pack of cigarettes for 20 years prior to that Denied alcohol and illicit use of drugs Review of Systems ROS Constitutional: No fever, chills, dizziness, weight gain or loss Eyes: No pain, erythema, discharge, blurring of vision ENT: No sore throat, epistaxis, tinnitus Cardiovascular: No Shortness of breath. Chest pressure, chest discomfort, palpitations, syncope, lower extremity edema, paroxysmal nocturnal dyspnea Respiratory: No Shortness of breath and cough present, No hemoptysis Gastrointestinal: Reports continue constipation Integumentary: No change in skin, hair, nails. No swelling, bruising, abrasions Neurologic: No headache, neck pain, numbness or tingling of the extremities, weakness Psychiatric: No delusions, depression, loss of interest in normal activity or change in sleep pattern, hallucinations, suicidal ideations Endocrine: No fatigue, weakness, polydipsia, polyuria, change in appetite, heat or cold intolerance, sweating, dry skin Hematological: No bleeding, petechiae, bruising Allergies: No asthma or urticaria Physical Exam Physical Exam Vital Signs: Temperature: 98.1, Source: Temporal, Heart Rate: 66, Respiratory Rate: 16, BP: 100/75, Pulse Oximetry: 100, Weight: 53.400 Oxygen Flow Rate: 0 Physical Exam Awake , alert, and oriented x4, resting comfortably in the bed, in no acute distress HEENT: Atraumatic, normocephalic, EOMI, anicteric sclera ; pink conjunctiva Neck: Trachea midline. Supple, full range of motion, no JVD Cardiac: Regular rhythm, regular rate with no murmurs all over the precordium. Respiratory: Equal breath sounds bilaterally, no tachypnea, no wheezing ,rub or rales, Chest wall is symmetric and without deformity. Gastrointestinal: Rigid mildly distended, diffuse abdominal tenderness, bowel sounds present Musculoskeletal: No pedal edema, no cyanosis Neurological: Mental status exam: alert and consciousness, orientation, memory, speech - Cranial nerve test: Cranial nerves 2-12 intact - Motor system: Nutrition, Tone 3+, Power 5/5, no involuntary movements - Sensory system: Intact - Reflex testing: Biceps, triceps and knee reflexes 2+ - Cerebellar: Normal Skin: Warm and dry Progress Progress Note The patient was seen with the medical administrative. I have supervised all aspects of the residents care. I have reviewed the resident's note as written and agree with the assessment and plan. The patient has significant constipation CT abdomen shows significant constipation without a bowel obstruction. The patient was treated with p.o. lactulose as well as milk of magnesia and IV fluids. He was offered an enema but would rather follow up as an outpatient. Prior hospitalizations has been reviewed. CT imaging was reviewed. The patient's pulse oximetry was interpreted as normal and adequate. The telemetry monitor was interpreted as a sinus rhythm. The patient will be discharged Results/Orders Results/Orders Completed Orders - OHLFS,KEELY Benitez MD Normal Saline 1000ml (0.9% Sodium Chlori (07/10/25 13:45) Magnesium Hydrox Oral Susp. (Milk Of Mag (07/10/25 13:45) Lactulose Oral Solution (Cephulac Oral S (07/10/25 13:45) Vital Signs 07/10/25 07/10/25 07/10/25 07/10/25 11:16 11:44 13:00 14:25 Temp 98.1 Pulse 66 54 Resp 16 B/P (MAP) 100/75 106/74 (85) 112/89 (97) Pulse Ox 100 100 O2 Flow Rate 0 07/10/25 15:14 Pulse 53 B/P (MAP) 121/93 Pulse Ox 98 Laboratory Tests Test 07/10/25 12:11 07/10/25 13:20 White Blood Count 6.1 Red Blood Count 4.28 L Hemoglobin 12.7 L Hematocrit 38.2 L Mean Corpuscular Volume 89.3 Mean Corpuscular Hemoglobin 29.6 Mean Corpuscular Hemoglobin Concent 33.2 Red Cell Distribution Width 13.6 Platelet Count 304 Mean Platelet Volume 8.3 Neutrophils (%) (Auto) 71.4 Lymphocytes (%) (Auto) 18.9 L Monocytes (%) (Auto) 7.2 Eosinophils (%) (Auto) 1.1 Basophils (%) (Auto) 1.4 H Neutrophils # (Auto) 4.3 Lymphocytes # (Auto) 1.1 Monocytes # (Auto) 0.4 Eosinophils # (Auto) 0.1 Basophils # (Auto) 0.1 CBC Comment Sodium Level 138 Potassium Level 4.8 Chloride Level 104 Carbon Dioxide Level 33.8 H Anion Gap 0 L Blood Urea Nitrogen 26 H Creatinine 1.23 H Estimated GFR/1.73 m2 63 BUN/Creatinine Ratio 21.1 H Glucose Level 91 Calcium Level 8.9 Total Bilirubin 0.2 Aspartate Amino Transf (AST/SGOT) 22 Alanine Aminotransferase (ALT/SGPT) 30 Alkaline Phosphatase 76 Total Protein 7.3 Albumin 3.8 Globulin 3.5 Albumin/Globulin Ratio 1.1 Chemistry Comments Urine Opiates Screen Negative Urine Methadone Screen Negative Urine Fentanyl Screen Negative Urine Barbiturates Screen Negative Urine Phencyclidine Screen Negative Urine Amphetamines Screen Negative Urine Benzodiazepines Screen Negative Urine Cocaine Screen Negative Urine Cannabinoids Screen Positive Drug Screen Comment Medical Decision Making Additional information obtaine: old records Findings Possible ileus/ chronic constipation Opiate use CT abdomen/pelvis ordered CMP for any electrolyte abnormalities Recent EGD 3 weeks ago showed Phytobezoar Fluid resuscitation with NS 1 bolus IV ordered Vitals stable Bowel sounds present, hence likely not complete small-bowel obstruction Based on CT abdomen pelvis, patient may need surgical consultation if any signs of partial SBO present Patient only complains of abdominal pain, no nausea or vomiting Prior UA tox, in January: positive for opiates, which could probably be causing his ileus UA tox ordered Differential Diagnosis Ileus Constipation IBS Departure Time of Disposition: 15:01 Disposition: HOME / SELF CARE / HOMELESS Impression: Primary Impression: Constipation Qualified Codes: K59.01 - Slow transit constipation Additional Impression: Ileus Discharge Instructions: Chronic Constipation Additional Instructions: Drink plenty of fluids, take senna Colace and MiraLax daily. Follow up with GI as soon as possible return for worsening of your symptoms Referrals: NO PRIMARY CARE PROVIDER (PCP) KUMAR GROVES MD Signature Scribe Signature: No scribe Attestation: Patsy Sprague MD Internal Medicine Resident, PGY-2 The note accurately reflects work and decisions made by me.Keely Joseph MD 07/14/25 07:59 PATSY SPRAGUE, RES Jul 10, 2025 11:56 KEELY JOSEPH MD Jul 10, 2025 15:02
[2025-07-10] MEDS: normal saline 1000ml 1,000 ML IV ONE (12:21)
[2025-07-10 12:23] LABS: MEAN PLATELET VOLUME 8.3 FL (7.4-10.4); RED CELL DISTRIBUTION WIDTH 13.6 % (11.5-14.5)
[2025-07-10 12:39] LABS: CREATININE 1.23 MG/DL (0.60-1.10); TOTAL CARBON DIOXIDE 33.8 MMOL/L (24-32); eCRCL 56 ML/MIN; eGFR 63 ML/MIN
--- NOTE | 2025-07-10 12:39 | RADIOLOGY REPORT ---
Exam: CT CT ABDOMEN PELVIS History: SBO COMPARISON: CT CT ABDOMEN PELVIS on DOS: 04/03/24 Technique: Multidetector spiral CT of the abdomen and pelvis was performed from lung bases to pubic symphysis WITHOUT IV CONTRAST. Axial, coronal and sagittal multiplanar reformats were performed by the technologist on a separate workstation. Radiation Dose : 1. Abdomen/Pelvis: CTDIvol 6.8mGy, DLP 302.01 mGy*cm. Findings: Lower chest is unremarkable. Liver, gallbladder, biliary tree, pancreas, spleen, adrenal glands, and kidneys are unremarkable. Abdominal aortic dimensions are normal. No lymphadenopathy. Very large amount of stool throughout the colon. No bowel obstruction. No pneumoperitoneum, ascites, or abscess. Urinary bladder is unremarkable. Prostate is unremarkable. No acute or suspicious osseous lesions. IMPRESSION: No acute abdominal or pelvic finding. Severe constipation Radiation optimization: All CT scans at this facility use at least one of these dose optimization techniques: automated exposure control mA and/or kV adjustment per patient size (includes targeted exams where dose is matched to clinical indication) or iterative reconstruction.
[2025-07-10 13:50] LABS: URINE AMPHETAMINE SCREEN NEGATIVE (Neg); URINE BARBITUATE SCREEN NEGATIVE (Neg); URINE BENZODIAZEPINES SCREEN NEGATIVE (Neg); URINE CANNABINOID SCREEN POSITIVE (Neg); URINE COCAINE SCREEN NEGATIVE (Neg); URINE METHADONE SCREEN NEGATIVE (Neg); URINE OPIATE SCREEN NEGATIVE (Neg); URINE PHENCYCLIDINE SCREEN NEGATIVE (Neg)
[2025-07-10] MEDS: normal saline 1000ML IV soln IVB ONE (14:09)
[2025-07-10] MEDS: lactulose 20gm/30ml cup PO ONE (14:09)
[2025-07-10] MEDS: magnesium hydroxide 30ml (MOM) UD suspension PO ONE (14:09)
[2025-07-10 15:14] VITALS: BP 121/93; PULSE 53; O2SAT 98
== END 2025-07-10 15:16 | disposition home or self-care (01) ==
LOC: ER 11:07
DX: K59.00 Constipation, unspecified (principal); E78.00 Pure hypercholesterolemia, unspecified; I10 Essential (primary) hypertension; I25.10 Atherosclerotic heart disease of native coronary artery without angina pectoris; I25.2 Old myocardial infarction; J44.9 Chronic obstructive pulmonary disease, unspecified; K56.7 Ileus, unspecified; Z85.841 Personal history of malignant neoplasm of brain; Z88.1 Allergy status to other antibiotic agents; Z88.2 Allergy status to sulfonamides; Z95.5 Presence of coronary angioplasty implant and graft; Z79.899 Other long term (current) drug therapy
CPT/HCPCS: 36415; 74176; 80053; 80305; 85025; 96360; 96361; 99284; J7030